=== PATIENT | male | born 2000 | race American Indian/Alaskan Native ===

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

== ENCOUNTER 2020-02-26 19:30 | Emergency (ER) | payer SELFPAY ==
--- NOTE | 2020-02-26 20:18 | Event Note ---
ED Screening Note Date of service: 02/26/20 Time: 20:17 ED Screening Note: Patient complains of rectal pain x yesterday Denies blood in stool This initial assessment/diagnostic orders/clinical plan/treatment(s) is/are subject to change based on patients health status, clinical progression and re- assessment by fellow clinical providers in the ED. Further treatment and workup at subsequent clinical providers discretion. Patient/guardian urged not to elope from the ED as their condition may be serious if not clinically assessed and managed. Initial orders include: ACC eval
[2020-02-26 22:09] VITALS: BP 128/39
--- NOTE | 2020-02-26 22:14 | Emergency Department Report ---
ED Male HPI - General Chief complaint: Rectal Pain Stated complaint: PAINFUL/BURNING IN RETUM Time Seen by Provider: 02/26/20 20:17 Source: patient Mode of arrival: Ambulatory Limitations: No Limitations - History of Present Illness Initial comments: The patient was evaluated in the emergency department for symptoms described in the history of present illness. He/she was evaluated in the context of the global COVID-19 pandemic, which necessitated consideration that the patient might be at risk for infection with the virus that causes COVID-19. Institutional protocols and algorithms that pertain to the evaluation of patients at risk for COVID-19 are in a state of rapid change based on information released by regulatory bodies including the CDC and federal and state organizations. These policies and algorithms were followed during the patient's care in the emergency department. Please note that these policies, procedures and recommendations changed on a rapid basis. 19-year-old -[place] male presents to the emergency room for 2-day history of rectal pain that is worse with sitting. Patient denies any blood with defecation. Patient states that the pain is constant worse with coughing or movement. Better with nothing. Patient denies any rectal intercourse or foreign body in the rectum area. Onset/Timin -: days(s) Severity scale (0 -10): 6 Consistency: constant Improves with: none Worsens with: movement denies other symptoms - Related Data Previous Rx's Medication Instructions Recorded Last Taken Type Permethrin 5% [Acticin 5% CREAM] 1 applicatio TP ONCE #1 tube 08/11/18 Unknown Rx Triamcinolone 0.1% [Kenalog 0.1% 1 applic TP TID #2 tube 08/11/18 Unknown Rx CREAM] Prednisone [predniSONE 10 mg 10 mg PO .TAPER #1 tab.ds.pk 08/25/18 Unknown Rx (6-Day Pack, 21 Tabs)] diphenhydrAMINE [Benadryl CAP] 25 mg PO Q8HR PRN #20 capsule 08/25/18 Unknown Rx Famotidine [Pepcid] 20 mg PO BID #20 tablet 05/03/19 Unknown Rx Amoxicillin/Potassium Clav 1 each PO BID #14 tablet 06/14/19 Unknown Rx [Augmentin 875-125 Tablet] Ibuprofen [Motrin 800 MG tab] 800 mg PO Q8HR PRN #20 tablet 06/14/19 Unknown Rx traMADoL [Ultram] 50 mg PO Q6HR PRN #7 tablet 06/14/19 Unknown Rx Hydrocortisone [Anusol-Hc 2.5% TOP 30 gm RC BID PRN #30 cream..g. 02/26/20 Unknown Rx CREAM] Ibuprofen [Motrin 600 MG tab] 600 mg PO Q8H PRN #30 tablet 02/26/20 Unknown Rx Allergies Allergy/AdvReac Type Severity Reaction Status Date / Time No Known Allergies Allergy Verified 08/25/18 12:26 ED Review of Systems ROS: Stated complaint: PAINFUL/BURNING IN RETUM Other details as noted in HPI Comment: All other systems reviewed and negative ED Past Medical Hx - Past Medical History Previous Medical History?: No - Surgical History Past Surgical History?: No - Social History Smoking Status: Never Smoker Substance Use Type: Marijuana - Medications Home Medications: Home Medications Medication Instructions Recorded Confirmed Last Taken Type Permethrin 5% [Acticin 5% CREAM] 1 applicatio TP ONCE #1 tube 08/11/18 Unknown Rx Triamcinolone 0.1% [Kenalog 0.1% 1 applic TP TID #2 tube 08/11/18 Unknown Rx CREAM] Prednisone [predniSONE 10 mg 10 mg PO .TAPER #1 tab.ds.pk 08/25/18 Unknown Rx (6-Day Pack, 21 Tabs)] diphenhydrAMINE [Benadryl CAP] 25 mg PO Q8HR PRN #20 capsule 08/25/18 Unknown Rx Famotidine [Pepcid] 20 mg PO BID #20 tablet 05/03/19 Unknown Rx Amoxicillin/Potassium Clav 1 each PO BID #14 tablet 06/14/19 Unknown Rx [Augmentin 875-125 Tablet] Ibuprofen [Motrin 800 MG tab] 800 mg PO Q8HR PRN #20 tablet 06/14/19 Unknown Rx traMADoL [Ultram] 50 mg PO Q6HR PRN #7 tablet 06/14/19 Unknown Rx Hydrocortisone [Anusol-Hc 2.5% TOP 30 gm RC BID PRN #30 cream..g. 02/26/20 Unknown Rx CREAM] Ibuprofen [Motrin 600 MG tab] 600 mg PO Q8H PRN #30 tablet 02/26/20 Unknown Rx ED Physical Exam - General Limitations: No Limitations General appearance: alert, in no apparent distress - Head Head exam: Present: atraumatic, normocephalic - Eye Eye exam: Present: normal appearance - ENT ENT exam: Present: mucous membranes moist - Neck Neck exam: Present: full ROM - Respiratory Respiratory exam: Absent: accessory muscle use - Rectal Rectal exam: Present: hemorrhoids, tenderness - Extremities Exam Extremities exam: Present: normal inspection, full ROM - Back Exam Back exam: Present: normal inspection, full ROM - Neurological Exam Neurological exam: Present: alert, oriented X3, normal gait - Psychiatric Psychiatric exam: Present: normal affect, normal mood - Skin Skin exam: Present: warm, dry, intact, normal color. Absent: rash ED Medical Decision Making - Medical Decision Making 19-year-old -[place] male presents to the emergency room for 2-day history of rectal pain that is worse with sitting. Patient denies any blood with defecation. Patient states that the pain is constant worse with coughing or movement. Better with nothing. Patient denies any rectal intercourse or foreign body in the rectum area. Patient appears to have a hemorrhoid that is nonstrangulating. Recommend Anusol suppositories and witch mary wipes. Encourage patient to drink plenty of water, do not sit on the toilet trying to defecate heart. Eat high-fiber diet. Critical care attestation.: If time is entered above; I have spent that time in minutes in the direct care of this critically ill patient, excluding procedure time. ED Disposition Clinical Impression: Hemorrhoid Disposition: DC-01 TO HOME OR SELFCARE Is pt being admited?: No Does the pt Need Aspirin: No Condition: Stable Instructions: Hemorrhoids, [id number] Additional Instructions: Please use Anusol. Increase your fiber intake increase your water intake avoid straining and defecating on the toilet for long period of time. Follow-up with the primary care provider. Prescriptions: Hydrocortisone [Anusol-Hc 2.5% TOP CREAM] 30 gm RC BID PRN #30 cream..g. PRN Reason: Rectal pain Ibuprofen [Motrin 600 MG tab] 600 mg PO Q8H PRN #30 tablet PRN Reason: Pain Referrals: PRIMARY CARE, [Primary Care Provider] - 3-5 Days [facility] [Provider Group] - 3-5 Days
== END 2020-02-26 22:25 | disposition home or self-care (01) ==
LOC: ED 19:30
DX: K64.9 Unspecified hemorrhoids (principal); F12.90 Cannabis use, unspecified, uncomplicated; Z79.899 Other long term (current) drug therapy
CPT/HCPCS: 99282